=== PATIENT | female | born 1955 | race Caucasian/White ===

== ENCOUNTER 2024-05-04 13:17 | Outpatient (AMB) | payer MEDICARE, SELFPAY ==
--- NOTE | 2024-05-04 13:26 | MHC.OFFVIS ---
Vital Signs 05/04/24 13:31 Height 5 ft 2 in Weight 134 lb 4.184 oz BMI 24.6 BP 116/70 Blood Pressure Location Lt brachial Position Sitting Pulse 81 Pulse Source Pulse Oximeter Pulse Oximetry (%) 98 Oxygen Delivery Method Room Air Intake Visit Reasons: sjogren syndrome/CM APT Intake Note: Patient presents for follow up on Sjogren's syndrome. Allergies celecoxib [From Celebrex] Allergy (Mild, Verified 05/04/24 13:52) Diarrhea clobetasol Allergy (Mild, Verified 05/04/24 13:52) Itching diphenhydramine [From Benadryl] Allergy (Mild, Verified 05/04/24 13:52) too sedated duloxetine Allergy (Mild, Verified 05/04/24 13:52) Anaphylaxis gabapentin Allergy (Mild, Verified 05/04/24 13:52) Anaphylaxis latex Allergy (Mild, Verified 05/04/24 13:52) skin sensativity Penicillins Allergy (Mild, Verified 05/04/24 13:52) Fainting pregabalin [From Lyrica] Allergy (Mild, Verified 05/04/24 13:52) skin sensitiv amitriptyline Adverse Reaction (Mild, Verified 05/04/24 13:52) dry mouth methylprednisolone Adverse Reaction (Mild, Verified 05/04/24 13:52) horrible buzz, feels like she is bursting out of her skin rofecoxib [From Vioxx] Adverse Reaction (Mild, Verified 05/04/24 13:52) Nausea Sulfa (Sulfonamide Antibiotics) Adverse Reaction (Mild, Verified 05/04/24 13:52) Rash tolnaftate Adverse Reaction (Mild, Verified 05/04/24 13:52) Rash venlafaxine [From Effexor] Adverse Reaction (Mild, Verified 05/04/24 13:52) ineffective oxybutynin Adverse Reaction (Unknown, Verified 05/04/24 13:52) Unknown tizanidine Adverse Reaction (Unknown, Unverified 05/04/24 13:52) Unknown topiramate [From Topamax] Adverse Reaction (Unknown, Verified 05/04/24 13:52) sleepy Omeprazole Allergy (Mild, Uncoded 05/04/24 13:52) Dizziness despiramine Adverse Reaction (Mild, Uncoded 05/04/24 13:52) Insomnia HPI HPI sjogren syndrome/CM APT: Details: She continues to have dry mouth. She has had a sensation in her throat, which is hard to distinguish from dryness versus GERD. When famotidine dose was increased it caused side effects, which led to patient discontinuing it and then starting pantoprazole 20 mg daily. Recently she has had improvement in the sensation of her throat and is able to swallow without difficulties. She had cataract surgery and hernia surgery. She continues to experience exertional dyspnea. She saw her roustabout supervisor Dr. Quinteros who ordered an echocardiogram. She was found to have moderate mitral regurgitation. I reviewed note from her roustabout supervisor, which mentions that her symptoms are not related to moderate mitral regurg. He is going to monitor patient clinically and if she continues to have persistent symptoms at follow-up he will consider transesophageal echocardiogram. She continues to dance regularly, which brings her great joint. She denies fevers, new rashes, chest pain, urinary symptoms. She has been experiencing active Raynaud's in her feet daily with her toes turning cold/numb and white when she enters the shower. A resolves after warming. [facility] Medical History (Updated 05/04/24 @ 21:06 by Michele Houston MD) Inguinal hernia Other bursal cyst, right hip Surgical History (Updated 05/04/24 @ 14:04 by Smita Stern CMA) History of cataract surgery H/O discectomy H/O knee surgery Review of Systems Const All systems reviewed & are unremarkable except as noted in HPI and below Physical Exam Vital Signs: Last Vital Signs Pulse 81 05/04/24 13:31 BP 116/70 05/04/24 13:31 Pulse Ox 98 05/04/24 13:31 Oxygen Delivery Method Room Air 05/04/24 13:31 BMI result Body Mass Index 24.6 Const Other: General: Comfortable CVS: RRR Respiratory: clear to auscultation bilaterally. Good respiratory effort Skin: No lesions seen Lymph node: No cervical lymphadenopathy MSK: No tenderness of any joints in upper extremity or lower extremity. No synovitis. Good range of motion of upper extremities and lower extremities. Assessment & Plan Assessment & Plan (1) Sjogren's disease: Comment: She continues to have dry mouth on pilocarpine 5 mg q.i.d. we discussed changing pilocarpine to an alternative agent. She has had relief on pantoprazole and reducing the throat sensation that she was having contributing difficulty swallowing, supporting GERD contributing to her symptoms. She continues to have chronic exertional dyspnea. Cardiology is not concerned for cardiac cause at this time. ILD associated with Sjogren syndrome is rare but I will start workup. Code(s): M35.00 - Sjogren syndrome, unspecified Category: Medical Qualifiers: Sjogren organ or system involvement: unspecified organ involvement Qualified Code(s): M35.00 - Sjogren syndrome, unspecified Plan: Stopped pilocarpine Start cevimeline 30 mg t.i.d. Continue hydroxychloroquine 200 mg daily. Requesting last eye exam for hydroxychloroquine surveillance [facility] [employer]. Since she recently started getting benefit from pantoprazole (2 month course) in improving the sensation in her throat and swallowing, I will continue it for now and plan to discontinue pantoprazole next visit. Labs for disease monitoring ordered I have ordered chest x-ray and PFTs to evaluate for ILD associated with Sjogren syndrome in setting of exertional dyspnea Recommend follow-up with roustabout supervisor for continued evaluation of cardiac cause for exertional dyspnea [facility] Return to clinic in 3 months (2) Raynaud disease without gangrene: Comment: Active on nifedipine 30 mg q.day. She is normotensive. We discussed side effects with increasing nifedipine. Patient understands to monitor. Code(s): I73.00 - Raynaud's syndrome without gangrene Category: Medical Plan: Increase nifedipine to 60 mg daily Continue warming hands and feet during active flares. She will continue to wear gloves in the cold. She will use electric hand warmer when needed (3) Other long term care administrator (current) drug therapy: Code(s): Z79.899 - Other long term care administrator (current) drug therapy Category: Medical Plan: See above (4) Exertional dyspnea: Code(s): R06.09 - Other forms of dyspnea Category: Medical Plan: See above Orders: Orders Alanine Aminotransferase Today M35.00 - Sjogren syndrome, unspecified C Reactive Protein Today M35.00 - Sjogren syndrome, unspecified Sjogren's Antibodies Today M35.00 - Sjogren syndrome, unspecified [place] Reflex Titer and Pattern Today M35.00 - Sjogren syndrome, unspecified Rheumatoid Factor Today M35.00 - Sjogren syndrome, unspecified Creatinine Today M35.00 - Sjogren syndrome, unspecified Complement C3 Today I73.00 - Raynaud's syndrome without gangrene, M35.00 - Sjogren syndrome, unspecified, Z79.899 - Other long term care administrator (current) drug therapy XR chest 2V Today R06.09 - Other forms of dyspnea PFT pulmonary function test Today R06.09 - Other forms of dyspnea Aspartate Amino Transferase Today M35.00 - Sjogren syndrome, unspecified Hepatitis B,C Profile Today M35.00 - Sjogren syndrome, unspecified T Spot TB Today M35.00 - Sjogren syndrome, unspecified Complete Blood Count Auto Diff Today M35.00 - Sjogren syndrome, unspecified Complement C4 Today I73.00 - Raynaud's syndrome without gangrene, Z79.899 - Other long term care administrator (current) drug therapy Medications: New cevimeline 1 cap PO TID 270 caps 3RF pantoprazole 20 mg PO DAILY 90 tabs 1RF nifedipine ER 60 mg PO DAILY 90 tabs 4RF Coding Level of Care Code Est Pt Level 4 (64912) Complex EM visit Add On G2211 Diagnoses Sjogren's syndrome, with unspecified organ involvement M35.00 Sjogren organ or system involvement: unspecified organ involvement Raynaud disease without gangrene I73.00 Other long term care administrator (current) drug therapy Z79.899 Exertional dyspnea R06.09
[2024-05-04 13:31] VITALS: BP 116/70; PULSE 81; O2SAT 98; BMI 24.6
== END 2024-05-04 14:42 | disposition home or self-care (01) ==
PROVIDERS: PCP Family Medicine; Visit Provider Internal Medicine Rheumatology
DX: M35.00 Sjogren syndrome, unspecified (principal); I73.00 Raynaud's syndrome without gangrene; Z79.899 Other long term (current) drug therapy; R06.09 Other forms of dyspnea
CPT/HCPCS: 99214; G2211

== ENCOUNTER → 2024-05-04 13:17 | Outpatient (BNVA) | payer MEDICARE, SELFPAY | PROVIDERS: PCP Family Medicine; Visit Provider Internal Medicine Rheumatology | DX: M35.00 Sjogren syndrome, unspecified (principal); I73.00 Raynaud's syndrome without gangrene; R06.09 Other forms of dyspnea; Z79.899 Other long term (current) drug therapy | CPT/HCPCS: 99212 ==

== ENCOUNTER 2024-05-08 11:09 | Outpatient (REF) | payer MEDICARE, SELFPAY ==
--- NOTE | ~2024-05-08 | XR_ITS ---
EXAMINATION: XR CHEST CLINICAL INFORMATION: R06.09 - Other forms of dyspnea COMPARISON: None available. TECHNIQUE: 2 views of the chest were obtained. FINDINGS: The cardiac silhouette is normal. There is mild diffuse bronchial wall thickening. There are no areas of consolidation. There are no pleural effusions or pneumothoraces. The bones and soft tissues are unremarkable for the patient's age. XR/XR chest 2V IMPRESSION: Bronchial wall thickening may be infectious and/or inflammatory in etiology. Electronically signed by: Tanya Sandoval MD 05/08/2024 01:19 PM PATRICIA
[2024-05-08 11:31] LABS: MANUAL DIFF FLAG NO
[2024-05-08 12:01] LABS: Basophils Absolute Auto 0.1 X10*3/uL (0.0-0.2); Basophils Percent Auto 0.8 % (0-2); Eosinophils Absolute Auto 0.3 X10*3/uL (0.0-0.4); Eosinophils Percent Auto 4.4 % (0-4); Hematocrit 42.9 % (37.0-47.0); Hemoglobin 13.9 g/dl (12.0-16.0); Imm Gran Abs Auto 0.02 X10*3/uL (0.00-0.03); Imm Gran Pct Auto 0.3 % (0.0-0.4); Lymphocytes Absolute Auto 1.5 X10*3/uL (1.2-4.9); Lymphocytes Percent Auto 23.1 % (20-40); Mean Corpuscular HGB Conc 32.4 g/dl (31.0-35.0); Mean Corpuscular Hemoglobin 29.1 pg (27.0-33.0); Mean Corpuscular Volume 89.9 fL (80.0-98.0); Mean Platelet Volume 9.4 fL (9.4-12.3); Monocytes Absolute Auto 0.6 X10*3/uL (0.1-1.2); Monocytes Percent Auto 8.8 % (2-11); Neutrophils Percent Auto 62.6 % (45-73); Platelet Count 272 X10*3/uL (160-400); Red Blood Count 4.77 X10*6/uL (4.20-5.50); Red Cell Distribution Width 12.4 % (11.0-16.0); White Blood Count 6.4 X10*3/uL (4.8-10.8)
[2024-05-08 12:45] LABS: Rheumatoid Factor < 13.0 IU/mL (<15.0)
[2024-05-08 12:57] LABS: Alanine Aminotransferase 26 U/L (0-31); Aspartate Amino Transferase 25 U/L (5-31); C Reactive Protein 0.12 mg/dL (< or = 0.50); Estimated Glomerular Filt Rate > 60
[2024-05-08 13:16] LABS: HBS Num1 1.17 mIU/mL (0-7.99); HBc Num1 0.06 S/CO (0.00-0.79); HBsAGNum1 0.42 S/CO (0.00-0.99); Hepatitis B Core Antibody Nonreactive (Nonreactive); Hepatitis B Surface Antigen Negative (Negative); ~HepC Num1 0.18 S/CO (0.00-0.79); ~Hepatitis B Surface Antibody NONREACTIVE (Nonreactive); ~Hepatitis C Antibody Nonreactive (Nonreactive)
[2024-05-09 13:29] LABS: Complement C3 117 mg/dL (83-193)
[2024-05-09 20:39] LABS: Antibody to SS-A Antigen <1.0 NEG AI (<1.0 NEG); Antibody to SS-B Antigen <1.0 NEG AI (<1.0 NEG)
[2024-05-10 13:44] LABS: Anti Nuclear Antibody Screen NEGATIVE (NEGATIVE)
[2024-05-11 03:48] LABS: TS Negative Control Passed; TS Panel A 0; TS Panel B 0; TS Positive Control Passed; TSpotTB Negative (Negative)
== END 2024-05-08 11:10 | disposition home or self-care (01) ==
LOC: HO.LAB 11:09
PROVIDERS: PCP Family Medicine; Visit Provider Internal Medicine Rheumatology
DX: M35.00 Sjogren syndrome, unspecified (principal); I73.00 Raynaud's syndrome without gangrene; Z79.899 Other long term (current) drug therapy; R06.09 Other forms of dyspnea
CPT/HCPCS: 36415; 71046; 82565; 84450; 84460; 85025; 86038; 86140; 86160; 86235; 86431; 86481; 86704; 86706; 86803; 87340

== ENCOUNTER 2024-06-16 16:01 | Outpatient (REF) | payer MEDICARE, SELFPAY ==
--- NOTE | 2024-06-16 16:05 | PFT_ITS ---
Flows: FEV1: 99 % of predicted at 2.02 L FVC: 104 % of predicted at 2.73 L FEV1/FVC: 74 % Bronchodilator response: Present in small to medium airways only Volumes: Total lung capacity: 100 % of predicted at 4.62 L Residual volume: 102 % of predicted at 1.88 L Slow vital capacity: 99 % of predicted at 2.75 L Expiratory reserve volume: 130 % of predicted at 0.91 L Diffusion capacity: Normal Impression: Reversible mild obstructive ventilatory defect with bronchodilator response present in small to medium airways only. MTDD
== END 2024-06-16 16:02 | disposition home or self-care (01) ==
LOC: HO.RESP 16:01
PROVIDERS: PCP Family Medicine; Visit Provider Internal Medicine Rheumatology
DX: R06.09 Other forms of dyspnea (principal)

== ENCOUNTER → 2024-06-16 16:05 | Outpatient (BNV) | payer MEDICARE, SELFPAY | PROVIDERS: PCP Family Medicine; Visit Provider Internal Medicine Pulmonary Disease | DX: R06.09 Other forms of dyspnea (principal) | CPT/HCPCS: 94060; 94727; 94729 ==

== ENCOUNTER 2024-08-03 12:37 | Outpatient (REF) | payer MEDICARE, SELFPAY ==
[2024-08-03 17:53] LABS: MANUAL DIFF FLAG NO
[2024-08-03 18:03] LABS: Basophils Percent Auto 0.4 % (0-2); Eosinophils Absolute Auto 0.1 X10*3/uL (0.0-0.4); Eosinophils Percent Auto 1.4 % (0-4); Hematocrit 38.4 % (37.0-47.0); Hemoglobin 12.6 g/dl (12.0-16.0); Imm Gran Abs Auto 0.03 X10*3/uL (0.00-0.03); Imm Gran Pct Auto 0.4 % (0.0-0.4); Lymphocytes Absolute Auto 1.7 X10*3/uL (1.2-4.9); Lymphocytes Percent Auto 21.3 % (20-40); Mean Corpuscular HGB Conc 32.8 g/dl (31.0-35.0); Mean Corpuscular Hemoglobin 29.5 pg (27.0-33.0); Mean Corpuscular Volume 89.9 fL (80.0-98.0); Mean Platelet Volume 9.8 fL (9.4-12.3); Monocytes Absolute Auto 0.5 X10*3/uL (0.1-1.2); Monocytes Percent Auto 6.3 % (2-11); Neutrophils Absolute Auto 5.6 x10*3/uL (2.0-8.3); Neutrophils Percent Auto 70.2 % (45-73); Platelet Count 318 X10*3/uL (160-400); Red Blood Count 4.27 X10*6/uL (4.20-5.50); Red Cell Distribution Width 13.7 % (11.0-16.0); White Blood Count 7.9 X10*3/uL (4.8-10.8)
[2024-08-03 18:15] LABS: Alanine Aminotransferase 25 U/L (0-31); Aspartate Amino Transferase 24 U/L (5-31); Estimated Glomerular Filt Rate > 60
== END 2024-08-03 12:38 | disposition home or self-care (01) ==
LOC: HO.HKASLDS 12:37
PROVIDERS: PCP Family Medicine; Visit Provider Internal Medicine Rheumatology
DX: M35.00 Sjogren syndrome, unspecified (principal); Z79.60 Long term (current) use of unspecified immunomodulators and immunosuppressants; I73.00 Raynaud's syndrome without gangrene; Z79.899 Other long term (current) drug therapy; R06.09 Other forms of dyspnea; N94.89 Other specified conditions associated with female genital organs and menstrual cycle
CPT/HCPCS: 36415; 82565; 84450; 84460; 85025; 99212

== ENCOUNTER 2024-08-03 12:37 | Outpatient (AMB) | payer MEDICARE, SELFPAY ==
--- NOTE | 2024-08-03 12:40 | A.OFFVIS_ITS ---
Vital Signs 08/03/24 12:42 Height 5 ft 2 in Weight 135 lb 9.349 oz BMI 24.8 BP 130/72 Blood Pressure Location Lt brachial Position Sitting Pulse 98 Pulse Source Pulse Oximeter Pulse Oximetry (%) 100 Oxygen Delivery Method Room Air Intake Visit Reasons: Follow Up 3mo Intake Note: Patient presents for follow up on Sjogren's syndrome. Allergies celecoxib [From Celebrex] Allergy (Mild, Verified 08/03/24 12:42) Diarrhea clobetasol Allergy (Mild, Verified 08/03/24 12:42) Itching diphenhydramine [From Benadryl] Allergy (Mild, Verified 08/03/24 12:42) too sedated duloxetine Allergy (Mild, Verified 08/03/24 12:42) Anaphylaxis gabapentin Allergy (Mild, Verified 08/03/24 12:42) Anaphylaxis latex Allergy (Mild, Verified 08/03/24 12:42) skin sensativity Penicillins Allergy (Mild, Verified 08/03/24 12:42) Fainting pregabalin [From Lyrica] Allergy (Mild, Verified 08/03/24 12:42) skin sensitiv amitriptyline Adverse Reaction (Mild, Verified 08/03/24 12:42) dry mouth methylprednisolone Adverse Reaction (Mild, Verified 08/03/24 12:42) horrible buzz, feels like she is bursting out of her skin rofecoxib [From Vioxx] Adverse Reaction (Mild, Verified 08/03/24 12:42) Nausea Sulfa (Sulfonamide Antibiotics) Adverse Reaction (Mild, Verified 08/03/24 12:42) Rash tolnaftate Adverse Reaction (Mild, Verified 08/03/24 12:42) Rash venlafaxine [From Effexor] Adverse Reaction (Mild, Verified 08/03/24 12:42) ineffective oxybutynin Adverse Reaction (Unknown, Verified 08/03/24 12:42) Unknown tizanidine Adverse Reaction (Unknown, Verified 08/03/24 12:42) Unknown topiramate [From Topamax] Adverse Reaction (Unknown, Verified 08/03/24 12:42) sleepy Omeprazole Allergy (Mild, Uncoded 05/04/24 13:52) Dizziness despiramine Adverse Reaction (Mild, Uncoded 05/04/24 13:52) Insomnia HPI HPI Follow Up 3mo: Details: Cevelimine caused increase saliva production at night with her having a puddle on her pillow and night gown. She is back on pilocarpine with benefit. Lower back pain has prevented patient to dance. SHe is working with PT. SHe will be seeing Dr. Watts PMR. She followed up with PCP for PFT results suggestive of asthma. She was prescribed albuterol PRN dyspnea. She had cataract surgery contributing to dry eyes. Treatment with prednisone drops resolved symptoms. New glasses with prism has helped her vision. Raynauds's syndrome epsiodes improved with increase nifedipine. Less chocking, talking, dryness in throat on pantoprazole. Vaginal burning. Hx of interstitial cystitis presenting with vaginal burning. In the past she was treated by urologist and integrated circuit design engineer. Symptoms have now returned. [facility] Medical History Inguinal hernia Other bursal cyst, right hip Surgical History History of cataract surgery H/O discectomy H/O knee surgery Review of Systems Const All systems reviewed & are unremarkable except as noted in HPI and below Physical Exam Vital Signs: Last Vital Signs Pulse 98 08/03/24 12:42 BP 130/72 08/03/24 12:42 Pulse Ox 100 08/03/24 12:42 Oxygen Delivery Method Room Air 08/03/24 12:42 BMI result Body Mass Index 24.8 Const Other: General: Comfortable CVS: RRR Respiratory: clear to auscultation bilaterally. Good respiratory effort Skin: No lesions seen, no digital ulcers or discoloration Lymph node: No cervical lymphadenopathy MSK: No tenderness of any joints in upper extremity or lower extremity. No synovitis. Good range of motion of upper extremities and lower extremities. Assessment & Plan Assessment & Plan (1) Sjogren's disease: Comment: She is finding benefit in controlling dry mouth on pilocarpine 5 mg q.i.d. Cevimeline caused increased saliva at night, which she discontinued. GERD contributing to difficulty swallowing with throat dryness is controlled on pantoprazole. She did not have any relief when she was on famotidine. I am recommending she trial off of pantoprazole and continue diet modifications. Due to her symptoms of exertional dyspnea, I initiated workup with chest x-ray and PFTs. Chest x-ray revealed bronchial wall thickening, which may be infectious or inflammatory in etiology. PFTs with bronchial challenge were concerning for asthma. Patient is placed on albuterol PRN by PCP. She continues to have symptoms of exertional dyspnea when she goes upstairs. After dance class, she has increased fatigue and needs 1 day of rest. I recommend considering using albuterol prior to exertion and to follow up with PCP to consider maintenance treatment with weighing risks and benefits. Rheumatology history: Serological negative Sjogren syndrome. Cevimeline caused increased saliva production at night. She is on pilocarpine 5 mg q.i.d. Code(s): M35.00 - Sjogren syndrome, unspecified Category: Medical Qualifiers: Sjogren organ or system involvement: unspecified organ involvement Qualified Code(s): M35.00 - Sjogren syndrome, unspecified Plan: Continue pilocarpine 5 mg q.i.d. Continue hydroxychloroquine 200 mg daily. Requesting last eye exam for hydroxychloroquine surveillance from [facility] [place]. Second request. Labs for drug monitoring ordered on HCQ Discontinue pantoprazole. If she continues to have symptoms of difficulty swallowing, she will need further workup with barium swallow/EGD Labs for disease monitoring reviewed 04/2024. Need SPEP. [facility] requested x2 request Return to clinic in 3 months (2) Raynaud disease without gangrene: Comment: Controlled on nifedipine 60 mg q.day. She is normotensive. Code(s): I73.00 - Raynaud's syndrome without gangrene Category: Medical Plan: Continue nifedipine to 60 mg daily Continue warming hands and feet during active flares. She will continue to wear gloves in the cold. She will use electric hand warmer when needed RTC 3 months (3) Other shelter (current) drug therapy: Code(s): Z79.899 - Other terminal system operator (current) drug therapy Category: Medical Plan: See above (4) Exertional dyspnea: Comment: PFTs confirm asthma. She may have a component of exercise-induced asthma. Code(s): R06.09 - Other forms of dyspnea Category: Medical Plan: See above (5) Vaginal burning: Comment: History of interstitial cystitis presenting with severe vaginal burning. Recent recurrence of vaginal burning. Code(s): N94.89 - Other specified conditions associated with female genital organs and menstrual cycle Category: Medical Plan: I recommend that she follow-up with her urologist. She should also follow-up with gynecology for exam to ensure that she does not have any new vaginal infection/pathology contributing to her symptom. Orders: Orders Alanine Aminotransferase 08/03/24 Z79.60 - senior care (current) use of unspecified immunomodulators and immunosuppressants Creatinine 08/03/24 Z79.60 - intermodal customer service (current) use of unspecified immunomodulators and immunosuppressants Complete Blood Count Auto Diff 08/03/24 Z79.60 - senior care (current) use of unspecified immunomodulators and immunosuppressants Aspartate Amino Transferase 08/03/24 Z79.60 - intermodal customer service (current) use of unspecified immunomodulators and immunosuppressants Protein Electrophoresis, Serum Today M35.00 - Sjogren syndrome, unspecified Coding Level of Care Code Est Pt Level 5 (26356) Complex EM visit Add On G2211 Diagnoses Sjogren's syndrome, with unspecified organ involvement M35.00 Sjogren organ or system involvement: unspecified organ involvement Raynaud disease without gangrene I73.00 Other terminal system operator (current) drug therapy Z79.899 Exertional dyspnea R06.09 Vaginal burning N94.89 Time Spent (min) 40
[2024-08-03 12:42] VITALS: BP 130/72; PULSE 98; O2SAT 100; BMI 24.8
== END 2024-08-03 13:16 | disposition home or self-care (01) ==
PROVIDERS: PCP Family Medicine; Visit Provider Internal Medicine Rheumatology
DX: M35.00 Sjogren syndrome, unspecified (principal); I73.00 Raynaud's syndrome without gangrene; Z79.899 Other long term (current) drug therapy; R06.09 Other forms of dyspnea; N94.89 Other specified conditions associated with female genital organs and menstrual cycle
CPT/HCPCS: 99215; G2211

== ENCOUNTER 2024-11-07 12:45 | Outpatient (REF) | payer MEDICARE, SELFPAY ==
[2024-11-07 18:22] LABS: Baso%MD 0.6 %; Eos%MD 7.9 %; Hematocrit 41.1 % (37.0-47.0); Hemoglobin 13.3 g/dl (12.0-16.0); IG%MD 0.3 %; Lymph%MD 22.7 %; Mean Corpuscular HGB Conc 32.4 g/dl (31.0-35.0); Mean Corpuscular Hemoglobin 29.2 pg (27.0-33.0); Mean Corpuscular Volume 90.1 fL (80.0-98.0); Mean Platelet Volume 9.8 fL (9.4-12.3); Mono%MD 6.3 %; Neut%MD 62.2 %; Platelet Count 288 X10*3/uL (160-400); Red Blood Count 4.56 X10*6/uL (4.20-5.50); Red Cell Distribution Width 13.2 % (11.0-16.0); White Blood Count 6.5 X10*3/uL (4.8-10.8)
[2024-11-07 18:30] LABS: Alanine Aminotransferase 21 U/L (0-31); Aspartate Amino Transferase 33 U/L (5-31); Estimated Glomerular Filt Rate > 60
[2024-11-07 19:25] LABS: Atypical Lymph Absolute Manual 0.4 x10*3/uL; Atypical Lymphs Percent Manual 6 % (0-6); Band Neutrophils Percent 3 % (3-5); Basophils Abs Manual 0.1 X10*3/uL (0.0-0.2); Basophils Percent Manual 2 % (0-2); Eosinophils Absolute Manual 0.3 X10*3/uL (0.0-0.4); Eosinophils Percent Manual 5 % (0-4); Lymphocytes Absolute Manual 1.4 X10*3/uL (1.2-4.9); Lymphocytes Percent Manual 21 % (20-40); Metamyelocytes Absolute 0.1 X10*3/uL; Metamyelocytes Percent 1 %; Monocytes Absolute Manual 0.1 X10*3/uL (0.1-1.2); Monocytes Percent Manual 2 % (2-11); Neutrophils Absolute Manual 4.1 X10*3/uL (2.0-8.3); Neutrophils Percent Manual 60 % (45-73)
[2024-11-07 19:26] LABS: Microcytosis 1+ (5-14) /OIF; RBC Morphology NOTED
[2024-11-07 19:30] LABS: Platelet Estimate NORMAL (NORMAL); Platelet Morphology Comment NORMAL
[2024-11-07 19:31] LABS: Burr Cells 1+ (0-2) /OIF
[2024-11-09 16:17] LABS: Prot Elec - Albumin 4.1 g/dL (3.8-4.8); Prot Elec - Alpha1 0.3 g/dL (0.2-0.3); Prot Elec - Alpha2 0.6 g/dL (0.5-0.9); Prot Elec - Beta 1 0.4 g/dL (0.4-0.6); Prot Elec - Beta 2 0.3 g/dL (0.2-0.5); Prot Elec - Gamma 0.5 g/dL (0.8-1.7); Prot Elec - Total Protein 6.1 g/dL (6.1-8.1)
== END 2024-11-07 12:46 | disposition home or self-care (01) ==
LOC: HO.HKASLDS 12:45
PROVIDERS: PCP Family Medicine; Visit Provider Internal Medicine Rheumatology
DX: M35.00 Sjogren syndrome, unspecified (principal); Z79.899 Other long term (current) drug therapy; Z51.81 Encounter for therapeutic drug level monitoring; I73.00 Raynaud's syndrome without gangrene
CPT/HCPCS: 36415; 82565; 84165; 84450; 84460; 85007; 85027; 99212

== ENCOUNTER 2024-11-07 12:45 | Outpatient (AMB) | payer MEDICARE, SELFPAY ==
--- NOTE | 2024-11-07 12:46 | MHC.OFFVIS ---
Vital Signs 11/07/24 12:47 Height 5 ft 2 in Weight 132 lb 5 oz BMI 24.2 BP 150/100 H Blood Pressure Location Lt brachial Position Sitting Pulse 81 Pulse Source Pulse Oximeter Pulse Oximetry (%) 98 Oxygen Delivery Method Room Air Intake Visit Reasons: 3 Months Accompanied by: Self / Same As Patient Allergies celecoxib [From Celebrex] Allergy (Mild, Verified 11/07/24 12:47) Diarrhea clobetasol Allergy (Mild, Verified 11/07/24 12:47) Itching diphenhydramine [From Benadryl] Allergy (Mild, Verified 11/07/24 12:47) too sedated duloxetine Allergy (Mild, Verified 11/07/24 12:47) Anaphylaxis gabapentin Allergy (Mild, Verified 11/07/24 12:47) Anaphylaxis latex Allergy (Mild, Verified 11/07/24 12:47) skin sensativity Penicillins Allergy (Mild, Verified 11/07/24 12:47) Fainting pregabalin [From Lyrica] Allergy (Mild, Verified 11/07/24 12:47) skin sensitiv amitriptyline Adverse Reaction (Mild, Verified 11/07/24 12:47) dry mouth methylprednisolone Adverse Reaction (Mild, Verified 11/07/24 12:47) horrible buzz, feels like she is bursting out of her skin rofecoxib [From Vioxx] Adverse Reaction (Mild, Verified 11/07/24 12:47) Nausea Sulfa (Sulfonamide Antibiotics) Adverse Reaction (Mild, Verified 11/07/24 12:47) Rash tolnaftate Adverse Reaction (Mild, Verified 11/07/24 12:47) Rash venlafaxine [From Effexor] Adverse Reaction (Mild, Verified 11/07/24 12:47) ineffective oxybutynin Adverse Reaction (Unknown, Verified 11/07/24 12:47) Unknown tizanidine Adverse Reaction (Unknown, Verified 11/07/24 12:47) Unknown topiramate [From Topamax] Adverse Reaction (Unknown, Verified 11/07/24 12:47) sleepy Omeprazole Allergy (Mild, Uncoded 05/04/24 13:52) Dizziness despiramine Adverse Reaction (Mild, Uncoded 05/04/24 13:52) Insomnia HPI HPI 3 Months: Details: Dry mouth and dry eyes is controlled. She had exacerbation of dry eyes after cataract surgery. Steroid inhaler caused increased anxiety. She stopped pantoprazole which exacerbated GERD. GI appt December 25. Dr. Stefanie STREETER did low back x-ray, which revealed DJD. He is considering RFA. Urology increased LDN double dose to help improve vaginal dryness/burning. 70% improvement. She has less fatigue. [facility] Medical History Inguinal hernia Other bursal cyst, right hip Surgical History History of cataract surgery H/O discectomy H/O knee surgery Physical Exam Vital Signs: Last Vital Signs Pulse 81 11/07/24 12:47 BP 150/100 H 11/07/24 12:47 Pulse Ox 98 11/07/24 12:47 Oxygen Delivery Method Room Air 11/07/24 12:47 BMI result Body Mass Index 24.2 Const Other: General: Comfortable CVS: RRR Respiratory: clear to auscultation bilaterally. Good respiratory effort Skin: No lesions seen, no digital ulcers or discoloration Lymph node: No cervical lymphadenopathy MSK: No tenderness of any joints in upper extremity or lower extremity. No synovitis. Normal range of motion of upper extremities and lower extremities. Assessment & Plan Assessment & Plan (1) Sjogren's disease: Comment: Dry mouth on pilocarpine 5 mg q.i.d. Dry eyes are controlled on restasis and sustane. Rheumatology history: Serological negative Sjogren syndrome. Biopsy did not identify minor salivary gland tissue February 2022. Dry mouth is controlled on pilocarpine. Cevimeline caused increased saliva production at night. Fatigue improved on hydroxychloroquine initially prescribed by PCP. Code(s): M35.00 - Sjogren syndrome, unspecified Category: Medical Qualifiers: Sjogren organ or system involvement: unspecified organ involvement Qualified Code(s): M35.00 - Sjogren syndrome, unspecified Plan: Continue pilocarpine 5 mg q.i.d. Continue hydroxychloroquine 200 mg daily. 05/2024 eye exam without Q surveillance exam OCT and visual field test. She has an eye exam scheduled in January. I have asked her to contact [facility] to ensure that she has a enough time for OCT and visual field test as part of her visit. Labs for drug monitoring ordered on [facility] Labs for disease monitoring 07/2024 missing SPEP. Ordered. Return to clinic in 6 months (2) Raynaud disease without gangrene: Comment: Controlled on nifedipine 60 mg q.day. Code(s): I73.00 - Raynaud's syndrome without gangrene Category: Medical Plan: Continue nifedipine to 60 mg daily Continue warming hands and feet during active flares. She will continue to wear gloves in the cold. She will use electric hand warmer when needed RTC 6 months (3) Other terminal makeup operator (current) drug therapy: Code(s): Z79.899 - Other custodial (current) drug therapy Category: Medical Plan: See above Orders: Orders Alanine Aminotransferase Today M35.00 - Sjogren syndrome, unspecified, Z51.81 - Encounter for therapeutic drug level monitoring, Z79.899 - Other terminal makeup operator (current) drug therapy Aspartate Amino Transferase Today M35.00 - Sjogren syndrome, unspecified, Z51.81 - Encounter for therapeutic drug level monitoring, Z79.899 - Other custodial (current) drug therapy Complete Blood Count Man Dif Today M35.00 - Sjogren syndrome, unspecified, Z51.81 - Encounter for therapeutic drug level monitoring, Z79.899 - Other custodial (current) drug therapy Creatinine Today M35.00 - Sjogren syndrome, unspecified, Z51.81 - Encounter for therapeutic drug level monitoring, Z79.899 - Other terminal makeup operator (current) drug therapy Coding Level of Care Code Est Pt Level 4 (13566) Complex EM visit Add On G2211 Diagnoses Sjogren's syndrome, with unspecified organ involvement M35.00 Sjogren organ or system involvement: unspecified organ involvement Raynaud disease without gangrene I73.00 Other custodial (current) drug therapy Z79.899
[2024-11-07 12:47] VITALS: BP 150/100; PULSE 81; O2SAT 98; BMI 24.2
--- OUTSIDE RECORDS SUMMARY | 2024-11-07 14:56 | XMS_ITS | Clinical Summary ---
Author Organization [facility] [address] [place] [address] [place] [phone] Phone Care Team Providers Care Punch Out Crew Member Name Role Phone Ermias Laurent MD Primary Care Provider [phone] Allergies Active Allergy Reactions Criticality Noted Date Comments Latex Rash Medium 01/27/2022 Oxycodone-Acetaminophen Other Low 01/27/2022 Terrible dreams Sulfa (Sulfonamide Antibiotics) Rash Low 12/31 Medications NIFEdipine CC (ADALAT CC) 60 mg 24 hr tablet Take 1 tablet (60 mg total) by mouth 1 (one) time each day before breakfast. Do not crush, chew, or split. Active vibegron (Gemtesa) 75 mg tablet tablet Take 1 tablet (75 mg total) by mouth 1 (one) time each day. Active pilocarpine (SALAGEN) 5 mg tablet Take 1 tablet (5 mg total) by mouth 3 (three) times a day. Active ALPRAZolam (NIRAVAM) 0.5 mg dispersible tablet Dissolve 1 tablet (0.5 mg total) on top of the tongue at bedtime as needed for anxiety. Max Daily Amount: 0.5 mg Active nelfinavir (VIRACEPT) 250 mg tablet Take by mouth. Activ e naltrexone (DEPADE) 50 mg tablet Take 1 tablet (50 mg total) by mouth 1 (one) time each day. Active pantoprazole (PROTONIX) 20 mg EC tablet Take 1 tablet (20 mg total) by mouth 1 (one) time each day before breakfast. Do not crush, chew, or split. Active carboxymethylcel lulose (REFRESH PLUS) 0.5 % ophthalmic solution 1 drop if needed for dry eyes. Active traZODone (DESYREL) 50 mg tablet Take 1 tablet (50 mg total) by mouth at bedtime. Active estradioL (ESTRACE) 0.01 % (0.1 mg/gram) vaginal cream Apply a small amount to the vaginal opening with your finger Wednesday, Wednesday, Wednesday 42.5 g 2 Active emollient comb no.2, bulk, ointment Gabapentin 5% compound. Apply 0.5 g to the affected area daily. Disp: 45g (three month supply) Patient phone: [phone] 45 g 2 5 Active Active Problems Problem Noted Date Diagnosed Date Vulvar atrophy 08/14/2024 Assessment & Plan (08/14/2024 4:26 PM EDT): Well controlled. Continue MWF Estrace. Vulvar burning 01/27/2022 Overview (08/14/2024): Last Assessment & Plan: At this point, I suggested that Irina continue her current regimen which seemed to be helping somewhat previously and continue to work with Urology and Rheumatology on her other conditions that may be negatively affecting her vulvar burning. She agreed with this plan. She will continue Assessment & Plan (08/14/2024 4:26 PM EDT): Unclear etiology. Normal exam. Treated atrophy. I explained this could be a nerve type pain, suggestive of vulvodynia. In such cases, she can try a topical neuromodulator vs oral. I recommended topical compound to avoid SE. She agreed. Will start gabapentin topically daily. Encounters Date Type Department Care Team Description 08/14/2024 2:15 PM EDT Office Visit Obstetrics and Gynecology [address] [phone] Stephanie Lewis MD Vulvar burning (Primary Dx); Vulvar atrophy; Positive culture finding; Pain, unspecified from Last 3 Months Surgical History Surgery Date Site/Laterality Comments ORTHOPEDIC SURGERY PROCEDURE: HISTORICAL ORTHOPEDIC SURGERY; COMMENT: trochanteroplasty Medical History Medical History Date Comments Chronic pain DX:Chronic pain Dry eye DX:Dry eye Vertigo DX:Vertigo Environmental allergies DX:Envir onmental allergies Reflex sympathetic dystrophy DX: Reflex sympathetic dystrophy Social History Tobacco Use Types Packs/Day Years Used Date Smoking Tobacco: Never Smokeless Tobacco: Never Alcohol Use Standard Drinks/Week Comments Never 0 (1 standard drink = 0.6 oz pur e alcohol) Housing Instability Answer Date Recorde d Are you worried that in the next 2 months you may not have stable housing? No 08/09/2024 Food Access & Nutrition Answer Date Rec orded Do you have access to a vari ety of food including fruits and vegetables? Yes 08/09/2024 Access to Healthcare Answer Date Record ed Within the last 3 months, ho w many times did you visit the emergency department for your medical care? 0 08/09/2024 Health Literacy Answer Date Recorded How often do you need to hav e someone help you when you read instructions, pamphlets, or other written material from your doctor or pharmacy? Never 08/09/2024 Caregiver: How often do you need to have someone help you when you read instructions, pamphlets, or other written material from your doctor or pharmacy? Not on file 08/09/2024 Financial Risk Answer Date Recorded How hard is it for you to pa y for the very basics like food, housing, medical care, and air conditioning / heating? Not very hard 08/09/2024 Transportation Answer Date Recorded Has the lack of transportati on kept you from meetings, work, or from getting things needed for daily living? No Has the lack of transportati on kept you from medical appointments or from getting medications? No 08/09/2024 Social Isolation Answer Date Recorded How often do you feel lonely or isolated from th ose around you? Never 08/09/2024 Food Risk Answer Date Recorded Within the past 12 months we worried whether our food would run out before we got money to buy more. Never true 08/09/2024 Within the past 12 months th e food we bought just didn't last and we didn't have money to get more. Never true 08/09/2024 Dependent Care Answer Date Recorded Do you need help finding or paying for care for your loved ones. For example, director maternal child or elderly care for an older adult? No 08/09/2024 Employment and Income Answer Date Recor ded During the last four weeks, have you been actively looking for work? No 08/09/2024 Living Situation Answer Date Recorded What is your living situation? 0 08/09/2024 Comments Unknown Sex and Gender Information Value Date Recorded Sex Assigned at Not on file Legal Sex Female 2:08 AM EST Gender Identity Not on file Sexual Orientation Not on file Obstetrics History Para Term AB IAB SAB Ectopic Multiple Livin g Live Births 3 2 2 1 1 2 2 Date Outcome GA Total Labor Labor/2nd/3rd Weight Sex Type Anes PTL Ophelia A1 A5 Name Clin SAB Term Vag-S pont Living Term Vag-S pont Living Last Filed Vital Signs Vital Sign Reading Time Taken Comments Blood Pressure 163/81 08/14/2024 4:29 PM EDT Pulse 77 07/30/2023 11:04 AM EST Temperature - - Respiratory Rate - - Oxygen Saturation - - Inhaled Oxygen Concentration - - Weight 59.9 kg (132 lb) 08/14/2024 4:29 PM EDT Height 158.8 cm (5' 2.5 ) 05/06/2022 11:06 AM ES T Body Mass Index 23.76 05/06/2022 11:06 AM EST Plan of Treatment Health Maintenance Due Date Last Done Comments Breast Cancer Screening 1955 Cholesterol Screening (Lipid Panel) 05/10/2022 Colorectal Cancer Screening: Colonoscopy 05/10/2022 Falls Risk Assessment 05/10/2022 Hepatitis C Screening 05/10/2022 Osteoporosis Screening (Bone Density Screening) 05/10/2022 Medicare Annual Wellness Visit 12/18/2023 12/17/2022 COVID-19 Vaccine ( season) 2025 07/12/2024, 01/22/2024, 08/06/2023, Additional history exists Depression Screening 08/09/2025 08/09/2024 Social Influencers of Health Screening 08/09/2025 08/09/2024 DTaP,Tdap,and Td Vaccines (4 - Td or Tdap) 10/06/2032 10/06/2022, 08/25/2012, 01/09/2003 Zoster Vaccines Completed 05/06/2020, 01/29, 09/10/2014 Pneumococcal Vaccine: 50+ Years Completed 04/07/2021, 09/29/2018 RSV Immunization Adult Patients Completed 01/15/2023 Influenza Vaccine Completed 01/22/2024, , 02/06/2022, Additional history exists HIB Vaccines Aged Out No longer eligi ble based on patient's age to complete this topic HPV Vaccines Aged Out No longer eligi ble based on patient's age to complete this topic Hepatitis A Vaccines Aged Out No long er eligible based on patient's age to complete this topic Hepatitis B Vaccines Aged Out No long er eligible based on patient's age to complete this topic IPV Vaccines Aged Out No longer eligi ble based on patient's age to complete this topic MMR Vaccines Aged Out No longer eligi ble based on patient's age to complete this topic Meningococcal ACWY Vaccine Aged Out N o longer eligible based on patient's age to complete this topic Meningococcal B Vaccine Aged Out No l onger eligible based on patient's age to complete this topic RSV Immunization Patients Under 20 months Aged Out No longer eligible based on patient's age to complete this topic Varicella Vaccines Aged Out No longer eligible based on patient's age to complete this topic Procedures Procedure Name Priority Date/Time Associated Diagnosis Comments CULTURE GENITAL Routine 08/14/2024 4:25 PM EDT Vulvar burning from Last 3 Months Results * Culture genital (08/14/2024 4:25 PM EDT) Culture, Genital No yeast, Beta Strep group B, Neisseria gonorrhoeae, Listeria, Gardnerella vaginalis, or other predominant potentially significant pathogens noted. 08/17/2024 11:07 AM EDT [facility] Swab Vaginal structure / Unknown Non-blood Collection / Unknown 08/14/2024 4:25 PM EDT 08/14/2024 4:25 PM EDT Narrative [facility] - 08/17/2024 11:07 AM EDT Heavy growth of gram negatives may be indicative of UTI Stephanie Lewis MD LAB MICROBIOLOGY - GENERAL ORDERABLES Final Result [facility] [address] [place] [address], [place] [phone] from Last 3 Months Insurance MEDICARE [facility] Care Teams Punch Out Crew Member Relationship Specialty Start Date End Date Ermias Laurent MD [address] [place] [address] [place] PCP - General 08/18/10
== END 2024-11-07 13:26 | disposition home or self-care (01) ==
LOC: HO.RHES 12:46
PROVIDERS: PCP Family Medicine; Visit Provider Internal Medicine Rheumatology
DX: M35.00 Sjogren syndrome, unspecified (principal); I73.00 Raynaud's syndrome without gangrene; Z79.899 Other long term (current) drug therapy
CPT/HCPCS: 99214; G2211

== ENCOUNTER 2025-05-10 12:50 | Outpatient (AMB) | payer MEDICARE, SELFPAY ==
[2025-05-10 12:57] VITALS: BP 120/70; PULSE 90; O2SAT 98; BMI 24.8
--- NOTE | 2025-05-10 12:57 | MHC.OFFVIS ---
Vital Signs 05/10/25 12:57 Height 5 ft 2 in Weight 135 lb 9.349 oz BMI 24.8 BP 120/70 Blood Pressure Location Rt brachial Position Sitting Pulse 90 Pulse Source Pulse Oximeter Pulse Oximetry (%) 98 Oxygen Delivery Method Room Air Intake Visit Reasons: 6 Months Intake Note: Patient presents today for Sjogren's syndrome, Accompanied by: Self / Same As Patient Allergies celecoxib (From Celebrex) Allergy (Mild, Verified 05/10/25 12:57) Diarrhea clobetasol Allergy (Mild, Verified 05/10/25 12:57) Itching diphenhydramine (From Benadryl) Allergy (Mild, Verified 05/10/25 12:57) too sedated duloxetine Allergy (Mild, Verified 05/10/25 12:57) Anaphylaxis gabapentin Allergy (Mild, Verified 05/10/25 12:57) Anaphylaxis latex Allergy (Mild, Verified 05/10/25 12:57) skin sensativity Penicillins Allergy (Mild, Verified 05/10/25 12:57) Fainting pregabalin (From Lyrica) Allergy (Mild, Verified 05/10/25 12:57) skin sensitiv amitriptyline Adverse Reaction (Mild, Verified 05/10/25 12:57) dry mouth methylprednisolone Adverse Reaction (Mild, Verified 05/10/25 12:57) horrible buzz, feels like she is bursting out of her skin rofecoxib (From Vioxx) Adverse Reaction (Mild, Verified 05/10/25 12:57) Nausea Sulfa (Sulfonamide Antibiotics) Adverse Reaction (Mild, Verified 05/10/25 12:57) Rash tolnaftate Adverse Reaction (Mild, Verified 05/10/25 12:57) Rash venlafaxine (From Effexor) Adverse Reaction (Mild, Verified 05/10/25 12:57) ineffective oxybutynin Adverse Reaction (Unknown, Verified 05/10/25 12:57) Unknown tizanidine Adverse Reaction (Unknown, Verified 05/10/25 12:57) Unknown topiramate (From Topamax) Adverse Reaction (Unknown, Verified 05/10/25 12:57) sleepy Omeprazole Allergy (Mild, Uncoded 05/04/24 13:52) Dizziness despiramine Adverse Reaction (Mild, Uncoded 05/04/24 13:52) Insomnia Medication List - Last Reconciled 05/10/25 by Michele Houston MD alprazolam 0.5 mg PO DAILY cyclosporine 0.05% (Restasis) 1 drp ophthalmic (eye) Q12H estradiol 0.01%(0.1mg/gram) (Estrace) 1 g vaginal 2XW hydroxychloroquine 200 mg PO DAILY meloxicam 15 mg PO DAILY naltrexone (Naltrex) 9 mg PO nifedipine ER 30 mg PO DAILY nifedipine ER 60 mg PO DAILY pantoprazole 20 mg PO DAILY pilocarpine HCl 5 mg PO QID trazodone 50 mg PO BEDTIME PRN vibegron (Gemtesa) 75 mg PO DAILY HPI HPI 6 Months: Details: Raynaud's syndrome is active in feet especially when in the shower. Toes are purple and numb. PFTs was normal 01/2025. After taking pilocaine she sweats for 20 min but it is tolerable. Dry eyes and dry mouth is tolerable. She is experiencing chronic lower back pain, which is now affecting her function. She is moving lasts and dancing last. She has to rest for 45 minutes in the middle of the day with her 2 cats on her to reach charged and reduce her back pain. She has been seeing a spinal specialist. She had radiofrequency ablation a few months ago without benefit. She is would consider surgery with consultation with Dr. Oliveira but has not seen him yet. [facility] Medical History Inguinal hernia Other bursal cyst, right hip Surgical History History of cataract surgery H/O discectomy H/O knee surgery Physical Exam Vital Signs: Last Vital Signs Pulse 90 05/10/25 12:57 BP 120/70 05/10/25 12:57 Pulse Ox 98 05/10/25 12:57 Oxygen Delivery Method Room Air 05/10/25 12:57 BMI result Body Mass Index 24.8 Const Other: General: Comfortable CVS: RRR Respiratory: clear to auscultation bilaterally. Good respiratory effort Skin: No lesions seen, no digital ulcers or discoloration Lymph node: No cervical lymphadenopathy MSK: No tenderness of any joints in upper extremity or lower extremity. No synovitis. Normal range of motion of upper extremities and lower extremities. Assessment & Plan Assessment & Plan (1) Sjogren's disease: Comment: Dry mouth on pilocarpine 5 mg q.i.d. Dry eyes are controlled on restasis and sustane. Rheumatology history: Serological negative Sjogren syndrome. Biopsy did not identify minor salivary gland tissue February 2022. Dry mouth is controlled on pilocarpine. Cevimeline caused increased saliva production at night. Fatigue improved on hydroxychloroquine initially prescribed by PCP. Code(s): M35.00 - Sjogren syndrome, unspecified Category: Medical Qualifiers: Sjogren organ or system involvement: unspecified organ involvement Qualified Code(s): M35.00 - Sjogren syndrome, unspecified Plan: Continue pilocarpine 5 mg q.i.d. Continue hydroxychloroquine 200 mg daily. Eye exam from January 2025 reveal that OCT and visual field testing was done. She will be following up with neonatal doctor yearly. Labs for drug monitoring due every 6 months -ordered Labs for disease monitoring due yearly - up-to-date Return to clinic in 3 months for Raynaud's syndrome management (2) Raynaud disease without gangrene: Comment: Uncontrolled on nifedipine 60 mg q.day. she has active Raynaud's in her feet. She is normotensive. We discussed side effects with increasing nifedipine. Code(s): I73.00 - Raynaud's syndrome without gangrene Category: Medical Plan: Increase nifedipine to 90 mg daily If she does not have control with nifedipine increase, she will need adjunct therapy with sildenafil. She will call office in 1 month for clinical update if Raynaud's is not under control. I will then start PA process for sildenafil 20 mg b.i.d. Continue warming hands and feet during active flares. She will continue to wear gloves in the cold. She will use electric hand warmer when needed RTC 3 months (3) Other intermediate project manager (current) drug therapy: Code(s): Z79.899 - Other intermediate project manager (current) drug therapy Category: Medical Plan: See above Medications: New nifedipine ER 30 mg PO DAILY 90 tabs 4RF Refilled hydroxychloroquine 200 mg PO DAILY 90 tabs 1RF Coding Level of Care Code Est Pt Level 4 (85440) Add On Problem Visit Only Diagnoses Sjogren's syndrome, with unspecified organ involvement M35.00 Sjogren organ or system involvement: unspecified organ involvement Raynaud disease without gangrene I73.00 Other intermediate project manager (current) drug therapy Z79.899
--- OUTSIDE RECORDS SUMMARY | 2025-05-10 19:27 | XMS_ITS | Clinical Summary ---
Author Organization [facility] [address] [place] [address] [place] [phone] Phone Care Team Providers Care Microwave Technician Name Role Phone Ermias Laurent MD Primary Care Provider [phone] Allergies Active Allergy Reactions Criticality Noted Date [...] finger Wednesday, Wednesday, Wednesday 42.5 g 2 5 Active emollient comb no.2, bulk, ointment Gabapentin 5% compound. Apply 0.5 g to the affected area daily. Disp: 45g (three month supply) Patient phone: [phone] 45 g 2 5 Active Active Problems [...] She agreed. Will start gabapentin topically daily. Surgical History Surgery Date Site/Laterality Comments ORTHOPEDIC [...] care for your loved ones. For example, school childcare attendant or elderly care for an older adult? No 08/09/2024 Employment and Income Answer Date Recor ded During the last four weeks, have you been actively looking for work? No 08/09/2024 Living Situation Answer Date Recorded What is your living situation? Unrecognized valu e 08/09/2024 Comments Unknown Sex and Gender Information Value Date Recorded Sex Assigned at Not on file Legal Sex Female 2:08 AM EST Gender Identity Not on file Sexual Orientation Not on file Obstetrics History * This document contains information received from the source organization and may not represent a complete record from that organization. Para Term AB IAB SAB Ectopic Multiple Livin g Live Births 3 2 2 2 2 Date Outcome GA Total Labor Labor/2nd/3rd Weight Sex Type Anes PTL Ophelia A1 A5 Name Clin Term Vag-S pont Living Term Vag-S pont [...] Last Done Comments Breast Cancer Screening 1955 Colorectal Cancer Screening: Colonoscopy 1955 Falls Risk Assessment 05/10/2022 Hepatitis C Screening 05/10/2022 Osteoporosis Screening (Bone Density Screening) 05/10/2022 Medicare Annual Wellness Visit 12/18/2023 12/17/2022 COVID-19 Vaccine ( season) 2025 07/12/2024, 01/22/2024, 08/06/2023, Additional history exists Influenza Vaccine (#1) 2025 , 02/24/2023, 02/06/2022, Additional history exists Social Influencers of Health Screening 08/09/2025 08/09/2024 DTaP,Tdap,and Td Vaccines (4 - Td or Tdap) 10/06/2032 10/06/2022, 08/25/2012, 01/09/2003 Zoster Vaccines Completed 05/06/2020, 01/29, 09/10/2014 Pneumococcal Vaccine: 50+ Years Completed 04/07/2021, 09/29/2018 RSV Immunization Adult Patients Completed 01/15/2023 Depression Screening Completed 08/09/2024 HIB Vaccines Aged Out No longer eligi [...] on patient's age to complete this topic Insurance MEDICARE [facility] Care Teams Microwave Technician Relationship Specialty Start Date End Date Ermias Laurent MD [address] [place] [address] [place] PCP - General 08/18/10
== END 2025-05-10 14:04 | disposition home or self-care (01) ==
PROVIDERS: PCP Family Medicine; Visit Provider Internal Medicine Rheumatology
DX: M35.00 Sjogren syndrome, unspecified (principal); I73.00 Raynaud's syndrome without gangrene; Z79.899 Other long term (current) drug therapy
CPT/HCPCS: 99214; G2211

== ENCOUNTER → 2025-05-10 12:50 | Outpatient (BNVA) | payer MEDICARE, SELFPAY | PROVIDERS: PCP Family Medicine; Visit Provider Internal Medicine Rheumatology | DX: M35.00 Sjogren syndrome, unspecified (principal); I73.00 Raynaud's syndrome without gangrene; Z79.899 Other long term (current) drug therapy | CPT/HCPCS: 99212 ==